=== PATIENT | male | born 1950 | race Caucasian/White ===

== ENCOUNTER 2016-10-09 13:18 | Inpatient (IN) | payer MEDICARE, MEDICAID ==
[~2016-10-09] VITALS: Ht 182.9 cm; Wt 80.7 kg
[2016-10-09] MEDS ORDERED: ONDANSETRON 2MG/ML, 2ML IVPush ONE (14:00)
[2016-10-09] MEDS ORDERED: SODIUM CHLORIDE 0.9% 1,000ML IVBOLUS ONE (14:00)
[2016-10-09] MEDS ORDERED: SODIUM CHLORIDE FLUSH 10ML SYR IVF ONE (14:00)
[2016-10-09] MEDS ORDERED: MORPHINE SULFATE 4 MG/ML, 1ML IVPush PRN (14:00)
[2016-10-09] MEDS ORDERED: MORPHINE SULFATE 4 MG/ML, 1ML ONE (14:32)
[2016-10-09] MEDS ORDERED: ONDANSETRON 2MG/ML, 2ML ONE (14:32)
[2016-10-09 14:49] LABS: BLOOD UREA NITROGEN 12 mg/dL (7-18)
[2016-10-09 14:54] LABS: ASPARTATE AMINO TRANSFERASE 37 U/L (15-37)
[2016-10-09] MEDS ORDERED: OMNIPAQUE 350 MG/ML, 100ML BOTTLE ONE (16:03)
[2016-10-09] MEDS ORDERED: ALBUTEROL/IPRATROPIUM 2.5MG/0.5MG, 3 ML ONE ×2 (16:53→16:54)
[2016-10-09] MEDS ORDERED: ALBUTEROL/IPRATROPIUM 2.5MG/0.5MG, 3 ML NPPB ONE (17:00)
[2016-10-09] MEDS ORDERED: ASPI-496 PO (17:05)
[2016-10-09] MEDS ORDERED: NS + 20MEQ KCL 1,000 ML IV SCH (17:28)
[2016-10-09] MEDS ORDERED: POLYETHYLENE GLYCOL 17 GM PACKET PO PRN (17:30)
[2016-10-09] MEDS ORDERED: ONDANSETRON 2MG/ML, 2ML IVPush PRN (17:30)
[2016-10-09] MEDS ORDERED: morphine SULFATE 10 MG/ML, 1ML IVPush PRN (17:30)
[2016-10-09] MEDS ORDERED: DOCUSATE 100 MG CAPSULE PO PRN (17:30)
[2016-10-09] MEDS ORDERED: ACETAMINOPHEN 325 MG TABLET PO PRN (17:30)
[2016-10-09] MEDS ORDERED: methylPREDNISolone SOD SUCC 125 MG/2 ML ONE (17:48)
[2016-10-09] MEDS ORDERED: NS + 20MEQ KCL 1,000 ML IV ONE (17:49)
[2016-10-09] MEDS ORDERED: NICOTINE 14MG/24 HR PATCH.TD24 ONE (17:49)
[2016-10-09] MEDS: methylPREDNISolone SOD SUCC 125 MG/2 ML IVPush SCH ×4 (17:53→23:13)
[2016-10-09] MEDS: NICOTINE 14MG/24 HR PATCH.TD24 TD SCH (17:54)
[2016-10-09] MEDS: HYDROcodone/APAP 5/325 TABLET PO PRN (19:32)
[2016-10-09 21:13] VITALS: BP 151/70
[2016-10-10 02:08] VITALS: BP 121/73
[2016-10-10] MEDS: methylPREDNISolone SOD SUCC 125 MG/2 ML IVPush SCH ×4 (04:52→17:38)
[2016-10-10 08:24] VITALS: BP 141/91
[2016-10-10] MEDS: SENNA/DOCUSATE TABLET PO SCH (09:46)
[2016-10-10 14:11] VITALS: BP 144/81
[2016-10-10] MEDS: NICOTINE 14MG/24 HR PATCH.TD24 TD SCH (17:38)
[2016-10-10 19:38] VITALS: BP 140/73
[2016-10-11 01:13] VITALS: BP 152/84
[2016-10-11] MEDS: methylPREDNISolone SOD SUCC 125 MG/2 ML IVPush SCH ×2 (01:30→10:09)
[2016-10-11 07:36] VITALS: BP 162/88
[2016-10-11] MEDS: SENNA/DOCUSATE TABLET PO SCH (10:05)
[2016-10-11] MEDS ORDERED: HYDR-3240 PO (12:27)
[2016-10-11] MEDS ORDERED: ALBU90AE INH (12:27)
[2016-10-11 14:00] VITALS: BP 167/96
[2016-10-11] MEDS: HYDROcodone/APAP 5/325 TABLET PO PRN (14:06)
== END 2016-10-11 14:40 | disposition home health service (06) | DRG 562 ==
LOC: ED 16:57 → EDIP 16:58 → ED 17:10 → SUATTDRO 17:17 → 4NOR 18:46 → DCLOUNGE 10-11 14:26
PROC: 2W3CX1Z Immobilization of Right Lower Arm using Splint (ICD-10-PCS; principal; 2016-10-10)
PROC: 0QS2XZZ Reposition Right Pelvic Bone, External Approach (ICD-10-PCS; 2016-10-11)
DX: S52.571A Other intraarticular fracture of lower end of right radius, initial encounter for closed fracture (principal); J96.01 Acute respiratory failure with hypoxia; S32.810A Multiple fractures of pelvis with stable disruption of pelvic ring, initial encounter for closed fracture; F17.210 Nicotine dependence, cigarettes, uncomplicated; J44.9 Chronic obstructive pulmonary disease, unspecified; K40.90 Unilateral inguinal hernia, without obstruction or gangrene, not specified as recurrent; W11.XXXA Fall on and from ladder, initial encounter; Y93.39 Activity, other involving climbing, rappelling and jumping off; Y92.098 Other place in other non-institutional residence as the place of occurrence of the external cause; Y99.8 Other external cause status
CPT/HCPCS: 36415; 71260; 72190; 74177; 80053; 85014; 85025; 94640; 96361; 96374; 96375; J2405; J3480; J7620; Q9967; J2930; J7030